=== PATIENT | male | born 1980 | race Caucasian/White ===

== ENCOUNTER 2017-10-14 16:52 | Emergency (ER) | payer OTHER ==
[2017-10-14] MEDS ORDERED: ONDANSETRON 4 MG TAB.RAPDIS PO ONE (17:10)
[2017-10-14] MEDS ORDERED: DICYCLOMINE HCL 20 MG TABLET PO ONE (17:10)
--- NOTE | 2017-10-14 17:12 | ER Document Report ---
ED Medical Screen (RME) - General Chief Complaint: Abdominal Pain Stated Complaint: ABDOMINAL PAIN Time Seen by Provider: 10/14/17 17:06 Notes: RAPID MEDICAL EVALUATION DISCLOSURE I have seen this patient as part of a Rapid Medical Evaluation and, if applicable, placed any initially appropriate orders. The patient will be seen and fully evaluated, including a full history and physical exam, by a provider ( in Main ED or Fast Track) when a room becomes available. 37-year-old male here with complaints of nausea vomiting epigastric abdominal pain nonradiating intermittent ongoing for the past 1 month. He has not noticed anything in particular that makes the pain worse or better. He has tried Tums and other [id number] ulcer medications with not much relief. He went to see his PCP at the [facility] today and they sent him here for further evaluation. EXAM Mild to moderate epigastric TTP TRAVEL OUTSIDE OF THE [place] IN LAST 30 DAYS: No - Related Data Allergies/Adverse Reactions: No Known Allergies Allergy (Unverified 10/14/17 16:54) Physical Exam - Vital signs Vitals: Temp Pulse Resp BP Pulse Ox 99.4 F 79 16 150/105 H 97 10/14/17 16:58 10/14/17 16:58 10/14/17 16:58 10/14/17 16:58 10/14/17 16:58 Course - Vital Signs Vital signs: Temp Pulse Resp BP Pulse Ox 99.4 F 79 16 150/105 H 97 10/14/17 16:58 10/14/17 16:58 10/14/17 16:58 10/14/17 16:58 10/14/17 16:58
[2017-10-14 17:55] LABS: ABSOLUTE BASOPHILS # (AUTO) 0.1 10^3/uL (0.0-0.2); ABSOLUTE EOSINOPHILS # (AUTO) 0.1 10^3/uL (0.0-0.6); ABSOLUTE LYMPHOCYTES (AUTO) 1.9 10^3/uL (0.5-4.7); ABSOLUTE MONOCYTES (AUTO) 0.5 10^3/uL (0.1-1.4); ABSOLUTE NEUT (AUTO) 6.7 10^3/uL (1.7-8.2); BASOPHILS % (AUTO) 0.9 % (0-2); EOSINOPHILS % (AUTO) 0.6 % (0-6); HEMATOCRIT 47.3 % (37.9-51.0); HEMOGLOBIN 16.3 g/dL (13.5-17.0); LYMPHOCYTES % (AUTO) 20.4 % (13-45); MEAN CORPUSCULAR HEMOGLOBIN 30.2 pg (27.0-33.4); MEAN CORPUSCULAR HGB CONC 34.5 g/dL (32.0-36.0); MEAN CORPUSCULAR VOLUME 88 fl (80-97); MONOCYTES % (AUTO) 5.7 % (3-13); PLATELET COUNT 319 10^3/uL (150-450); RED BLOOD COUNT 5.41 10^6/uL (4.35-5.55); RED CELL DISTRIBUTION WIDTH 12.4 % (11.5-14.0); SEGMENTED NEUTROPHILS % (AUTO) 72.4 % (42-78); TOTAL CELLS COUNTED % (AUTO) 100 %; WHITE BLOOD COUNT 9.3 10^3/uL (4.0-10.5)
[2017-10-14 18:16] LABS: ALANINE AMINOTRANSFERASE 19 U/L (21-72); ALBUMIN 4.3 g/dL (3.5-5.0); ALKALINE PHOSPHATASE 40 U/L (38-126); ANION GAP 12 (5-19); ASPARTATE AMINO TRANSFERASE 17 U/L (17-59); BILIRUBIN,DIRECT 0.3 mg/dL (0.0-0.4); BILIRUBIN,TOTAL 0.6 mg/dL (0.2-1.3); BLOOD UREA NITROGEN 9 mg/dL (7-20); CALCIUM 9.6 mg/dL (8.4-10.2); CARBON DIOXIDE 28 mmol/L (22-30); CHLORIDE 105 mmol/L (98-107); GLUCOSE 95 mg/dL (75-110); LIPASE 84.5 U/L (23-300); POTASSIUM 4.3 mmol/L (3.6-5.0); SODIUM 144.7 mmol/L (137-145); TOTAL PROTEIN 6.5 g/dL (6.3-8.2)
[2017-10-14] MEDS ORDERED: SUCRALFATE SUSP 1 GM/10 ML UDCUP PO ONE (20:23)
[2017-10-14] MEDS ORDERED: FAMOTIDINE 20 MG TABLET PO ONE (20:23)
--- NOTE | 2017-10-14 20:31 | ER Document Report ---
ED General - General Chief Complaint: Abdominal Pain Stated Complaint: ABDOMINAL PAIN Time Seen by Provider: 10/14/17 17:06 TRAVEL OUTSIDE OF THE [place] IN LAST 30 DAYS: No - HPI Notes: 37-year-old male presents with a month of epigastric pain. Patient describes a month gradual increasing pain. [facility]. Sometimes worse with eating. Burning and throbbing at times. Does not drink heavily. No history of ulcer disease. No history of heavy NSAID or aspirin use. Does not seem to be worse with fried or fatty foods. No other modifying factors, no other associated symptoms, no other provocative or palliative factors. Nonradiating. Gradual in onset. - Related Data Allergies/Adverse Reactions: No Known Allergies Allergy (Unverified 10/14/17 16:54) Past Medical History - Social History Smoking Status: Unknown if Ever Smoked Family History: None Patient has suicidal ideation: No Patient has homicidal ideation: No - Medical History Medical History: Negative Renal/ Medical History: Denies: Hx Peritoneal Dialysis Review of Systems - Review of Systems Notes: Review of systems as in the history of present illness, otherwise negative x 10 systems. Physical Exam - Vital signs Vitals: Temp Pulse Resp BP Pulse Ox 99.4 F 79 16 150/105 H 97 10/14/17 16:58 10/14/17 16:58 10/14/17 16:58 10/14/17 16:58 10/14/17 16:58 - Notes Notes: General: Well developed . HEENT: Normocephalic, atraumatic. Pupils equal round reactive to light. No JVD. Chest: No trauma. Respiratory: Good air exchange, normal excursion. Cardiac: Regular rhythm. No murmurs or gallops. Abdomen: Soft, benign. Nondistended, mild mid epigastric tenderness. Right upper quadrant tenderness, no Taylor sign Back: No asymmetry or gross abnormality. Motor: Grossly normal power and tone. Neurologic: Alert, nonfocal. Cranial nerves II-12 are intact. Sensation intact. Vascular: Well perfused. Normal peripheral pulses. Skin: No petechiae or purpura. Course - Re-evaluation Re-evalutation: 10/14/17 20:30 37-year-old male with the after mentioned symptoms. Strongly suspicious for gastritis peptic ulcer disease. Patient was seen by the physician in triage and labs are available I first evaluated him, no evidence of pancreatitis. No evidence of LFTs or bilirubin elevation. Although somewhat atypical, may be related to symptomatic cholelithiasis. Apparently was sent here by the [facility] to be evaluated for his "gallbladder". This point we will proceed with H2 blockers, antiemetics, ultrasound and reassess 10/14/17 22:14 Ultrasound was obtained, unremarkable with exception of gastric wall thickening. Patient is advised of the critical importance of gastroenterology follow-up. Malignancy somewhat unlikely given age but is in consideration and he understands this. He is discharged home with prescription for Carafate, omeprazole, will take a H2 bolivar until omeprazole levels stabilize. - Vital Signs Vital signs: Temp Pulse Resp BP Pulse Ox 99.4 F 79 16 150/105 H 97 10/14/17 16:58 10/14/17 16:58 10/14/17 16:58 10/14/17 16:58 10/14/17 16:58 - Laboratory Result Diagrams: 10/14/17 17:30 10/14/17 17:30 Laboratory results interpreted by me: 10/14/17 17:30 ALT 19 L Discharge - Discharge Clinical Impression: Epigastric pain Condition: Good Disposition: HOME, SELF-CARE Instructions: Abdominal Pain ([facility]) Additional Instructions: You must see your primary care doctor within the next week Prescriptions: Omeprazole 40 mg PO DAILY #30 capsule. Sucralfate [Carafate Susp 1 Gm/10 Ml Udcup] 1 gm PO Q8 #200 udc
--- NOTE | 2017-10-14 22:11 | RADIOLOGY REPORT (SQ) ---
EXAM DESCRIPTION: U/S ABDOMEN LIMITED W/O DOP COMPLETED DATE/TIME: 10/14/2017 9:57 pm REASON FOR STUDY: GB US COMPARISON: None. TECHNIQUE: Dynamic and static grayscale images acquired of the abdomen and recorded on PACS. Additio nal selected color Doppler and spectral images recorded. LIMITATIONS: None. FINDINGS: PANCREAS: No masses. Visualized pancreatic duct normal caliber. LIVER: No masses. Echotexture normal. LIVER VASCULATURE: Normal directional flow of the main portal vein and hepatic veins. GALLBLADDER: No stones. Normal wall thickness. No pericholecystic fluid. ULTRASOUND-DETECTED HERMAN'S SIGN: Negative. INTRAHEPATIC DUCTS AND COMMON DUCT: CBD and intrahepatic ducts normal caliber. No filling defects. INFERIOR VENA CAVA: Normal flow. AORTA: No aneurysm. RIGHT KIDNEY: Normal size. Normal echogenicity. No solid or suspicious masses. No hydronephrosis. No calcifications. PERITONEAL AND RIGHT PLEURAL SPACE: No ascites or effusions. OTHER: Question gastric wall thickening versus normal decompressed stomach. IMPRESSION: NORMAL RIGHT UPPER QUADRANT ULTRASOUND. Question gastric wall thickening. TECHNICAL DOCUMENTATION: JOB ID: [id number] [employer]- All Rights Reserved Reading location - IP/workstation name: [email or web address]
[2017-10-14 22:51] VITALS: BP 137/96
== END 2017-10-14 22:41 | disposition home or self-care (01) ==
LOC: ER 16:52
DX: R10.13 Epigastric pain (principal); R10.816 Epigastric abdominal tenderness; R10.811 Right upper quadrant abdominal tenderness
CPT/HCPCS: 99284; 36415; 83690; 85025; 80053; 76705; J3490; S0119